=== PATIENT | male | born 1960 | race Caucasian/White ===

== ENCOUNTER 2017-11-09 17:41 | Emergency (ER) | payer OTHER ==
[~2017-11-09] VITALS: Ht 157.5 cm; Wt 92.6 kg
[2017-11-09 18:25] LABS: BASOPHILS # (AUTO) 0.04 x10^3/uL (0-0.1); BASOPHILS % (AUTO) 1 % (0-1); EOSINOPHILS # (AUTO) 0.06 x10^3/uL (0-0.4); EOSINOPHILS % (AUTO) 1 % (1-7); LYMPHOCYTES # (AUTO) 3.45 x10^3/uL (1-3.4); LYMPHOCYTES % (AUTO) 43 % (22-44); MD NO; MEAN CORPUSCULAR HEMOGLOBIN 33.6 pg (27.5-34.5); MEAN CORPUSCULAR HGB CONC 35.1 g/dL (33.2-36.2); MEAN CORPUSCULAR VOLUME 95.6 fL (81-97); MEAN PLATELET VOLUME 10.4 fL (7.4-10.4); MONOCYTES # (AUTO) 0.73 x10^3/uL (0.2-0.8); MONOCYTES % (AUTO) 9 % (2-9); NEUTROPHILS % (AUTO) 46 % (42-75); PLATELET COUNT 173 x10^3/uL (130-400); RED BLOOD COUNT 4.72 x10^6/uL (4.38-5.82); RED CELL DISTRIBUTION WIDTH 13.1 % (9.4-14.8)
[2017-11-09 18:33] LABS: ALANINE AMINOTRANSFERASE 77 U/L (12-78); ALBUMIN 3.8 g/dL (3.4-5.0); ANION GAP 9 mmol/L (5-15); CALCIUM 8.3 mg/dL (8.5-10.1); CHLORIDE 110 mmol/L (98-107); CREATININE 0.89 mg/dL (0.7-1.3)
[2017-11-09 18:37] LABS: ALKALINE PHOSPHATASE 106 U/L (45-117); BILIRUBIN,TOTAL 0.8 mg/dL (0.2-1.0); TOTAL PROTEIN 7.8 g/dL (6.4-8.2); TROPONIN I < 0.015 ng/mL (0.000-0.045)
[2017-11-09] MEDS ORDERED: LISINOPRIL 20 MG TABLET PO ONE (19:00)
[2017-11-09] MEDS ORDERED: LISINOPRIL 20 MG TABLET ONE (19:19)
[2017-11-09 19:23] VITALS: BP 209/120
== END 2017-11-09 20:05 | disposition home or self-care (01) ==
LOC: ED 19:59
DX: I10 Essential (primary) hypertension (principal)
CPT/HCPCS: 36415; 71045; 80053; 83880; 84484; 85025; 93005; 99285

== ENCOUNTER 2017-12-09 06:06 | Emergency (ER) | payer OTHER ==
[~2017-12-09] VITALS: Ht 177.8 cm; Wt 89.1 kg
[2017-12-09 06:39] LABS: BASOPHILS # (AUTO) 0.06 x10^3/uL (0-0.1); BASOPHILS % (AUTO) 1 % (0-1); EOSINOPHILS # (AUTO) 0.04 x10^3/uL (0-0.4); EOSINOPHILS % (AUTO) 1 % (1-7); LYMPHOCYTES # (AUTO) 2.95 x10^3/uL (1-3.4); LYMPHOCYTES % (AUTO) 42 % (22-44); MD NO; MEAN CORPUSCULAR HEMOGLOBIN 34.2 pg (27.5-34.5); MEAN CORPUSCULAR HGB CONC 34.9 g/dL (33.2-36.2); MEAN PLATELET VOLUME 9.9 fL (7.4-10.4); MONOCYTES # (AUTO) 0.71 x10^3/uL (0.2-0.8); MONOCYTES % (AUTO) 10 % (2-9); NEUTROPHILS # (AUTO) 3.36 x10^3/uL (1.8-6.8); NEUTROPHILS % (AUTO) 47 % (42-75); PLATELET COUNT 158 x10^3/uL (130-400); RED BLOOD COUNT 4.68 x10^6/uL (4.38-5.82); RED CELL DISTRIBUTION WIDTH 12.8 % (9.4-14.8)
[2017-12-09 06:51] LABS: ALBUMIN 3.7 g/dL (3.4-5.0); ANION GAP 7 mmol/L (5-15); CALCIUM 8.6 mg/dL (8.5-10.1); CHLORIDE 110 mmol/L (98-107)
[2017-12-09 06:55] LABS: ALANINE AMINOTRANSFERASE 95 U/L (12-78); ALKALINE PHOSPHATASE 100 U/L (45-117); BILIRUBIN,TOTAL 0.9 mg/dL (0.2-1.0); CREATININE 0.86 mg/dL (0.7-1.3); TOTAL PROTEIN 7.5 g/dL (6.4-8.2)
[2017-12-09 07:44] VITALS: BP 156/92
== END 2017-12-09 08:39 | disposition home or self-care (01) ==
LOC: ED 06:17
DX: I10 Essential (primary) hypertension (principal); G47.00 Insomnia, unspecified; Z87.891 Personal history of nicotine dependence
CPT/HCPCS: 36415; 80053; 85025; 93005; 99285

== ENCOUNTER 2020-11-04 05:34 | Observation (INO) | payer BC, OTHER ==
[~2020-11-04] VITALS: Ht 172.7 cm; Wt 92.9 kg
[2020-11-04] MEDS ORDERED: PROCHLORPERAZINE 5 MG/ML, 2ML ONE (05:48)
[2020-11-04] MEDS ORDERED: MECLIZINE CHEWABLE 25 MG TAB ONE (05:49)
[2020-11-04] MEDS ORDERED: PROCHLORPERAZINE 5 MG/ML, 2ML IVPush ONE (06:00)
[2020-11-04] MEDS ORDERED: MECLIZINE CHEWABLE 25 MG TAB PO ONE (06:00)
[2020-11-04 06:02] LABS: BASOPHILS % (AUTO) 1 % (0-1); EOSINOPHILS % (AUTO) 1 % (1-7); LYMPHOCYTES % (AUTO) 39 % (22-44); MEAN CORPUSCULAR HEMOGLOBIN 33.9 pg (27.5-34.5); MEAN PLATELET VOLUME 9.6 fL (7.4-10.4); MONOCYTES % (AUTO) 7 % (2-9); NEUTROPHILS % (AUTO) 52 % (42-75); PLATELET COUNT 148 x10^3/uL (130-400); RED BLOOD COUNT 4.58 x10^6/uL (4.38-5.82); RED CELL DISTRIBUTION WIDTH 13.1 % (9.4-14.8)
[2020-11-04 06:13] LABS: ALBUMIN 3.4 g/dL (3.4-5.0); ANION GAP 8 mmol/L (5-15); CALCIUM 8.7 mg/dL (8.5-10.1); CHLORIDE 107 mmol/L (98-107)
[2020-11-04 06:18] LABS: ALANINE AMINOTRANSFERASE 57 U/L (12-78); ALKALINE PHOSPHATASE 67 U/L (45-117); CREATININE 0.75 mg/dL (0.7-1.3); TOTAL PROTEIN 7.1 g/dL (6.4-8.2)
--- NOTE | 2020-11-04 06:33 | NUR ---
PT RESTING IN BED, VSS, STATES THAT HE STILL FEELS DIZZY AT THIS TIME
--- NOTE | 2020-11-04 08:00 | NUR ---
PT OFF THE FLOOR TO MRI
[2020-11-04] MEDS ORDERED: DEXAMETHASONE 4 MG/ML, 1ML IVPush ONE (08:30)
[2020-11-04] MEDS ORDERED: DEXAMETHASONE 4 MG/ML, 1ML ONE (08:51)
--- NOTE | 2020-11-04 10:11 | NUR ---
ATTEMPTED TO AMBULATE PT. PT STATES HE STILL FEELS DIZZY AND LIKE HE WILL FALL. PT PLACED BACK IN BED AND HOOKED UP TO VS MONITORING.
[2020-11-04] MEDS ORDERED: SODIUM CHLORIDE 0.9%, 500ML IVBOLUS ONE (10:30)
[2020-11-04] MEDS ORDERED: ATEN25TA PO (10:38)
[2020-11-04] MEDS ORDERED: LISI-170 PO (10:39)
--- NOTE | 2020-11-04 10:48 | NUR ---
REPORT TO REGINE ALVAREZ
[2020-11-04 11:07] VITALS: BP 160/94
[2020-11-04 11:41] VITALS: BP 160/94
[2020-11-04] MEDS ORDERED: IBUPROFEN 600 MG TABLET PO PRN (12:30)
[2020-11-04] MEDS ORDERED: ACETAMINOPHEN 325 MG TABLET PO PRN (12:30)
[2020-11-04] MEDS ORDERED: ONDANSETRON ODT 4 MG PO PRN (12:30)
[2020-11-04] MEDS ORDERED: LACTATED RINGERS 1,000 ML IV SCH (12:30)
[2020-11-04] MEDS: ENOXAPARIN 40 MG/0.4 ML SQ SCH (12:30)
[2020-11-04] MEDS ORDERED: SENNA/DOCUSATE TABLET PO PRN (12:30)
[2020-11-04] MEDS ORDERED: PROMETHAZINE 25 MG/ML, 1ML IM PRN (12:30)
[2020-11-04] MEDS ORDERED: ONDANSETRON 2MG/ML, 2ML IVPush PRN (12:30)
[2020-11-04] MEDS ORDERED: POLYETHYLENE GLYCOL 17 GM PACKET PO PRN (12:30)
[2020-11-04 13:15] VITALS: BP 127/78
[2020-11-04] MEDS: POTASSIUM CHLORIDE 20 MEQ TAB.ER.PRT PO SCH ×2 (13:20→20:22)
[2020-11-04 18:42] VITALS: BP 144/77
[2020-11-04 20:24] VITALS: BP 136/71
[2020-11-04] MEDS ORDERED: ATENOLOL 25 MG TABLET PO SCH (21:00)
[2020-11-05 00:32] VITALS: BP 143/77
[2020-11-05 06:39] LABS: BASOPHILS % (AUTO) 0 % (0-1); EOSINOPHILS % (AUTO) 0 % (1-7); LYMPHOCYTES % (AUTO) 18 % (22-44); MEAN CORPUSCULAR HEMOGLOBIN 34.1 pg (27.5-34.5); MEAN CORPUSCULAR HGB CONC 34.3 g/dL (33.2-36.2); MEAN PLATELET VOLUME 10.4 fL (7.4-10.4); MONOCYTES % (AUTO) 7 % (2-9); NEUTROPHILS % (AUTO) 75 % (42-75); PLATELET COUNT 175 x10^3/uL (130-400)
[2020-11-05 06:50] LABS: ANION GAP 5 mmol/L (5-15); CALCIUM 8.7 mg/dL (8.5-10.1); CHLORIDE 109 mmol/L (98-107); CREATININE 0.79 mg/dL (0.7-1.3)
[2020-11-05 07:14] VITALS: BP 128/82
[2020-11-05] MEDS: ENOXAPARIN 40 MG/0.4 ML SQ SCH (08:50)
[2020-11-05] MEDS ORDERED: LISINOPRIL 20 MG TABLET PO SCH (09:00)
[2020-11-05 13:28] VITALS: BP 134/89
== END 2020-11-05 18:04 | disposition home or self-care (01) ==
LOC: ED 11:34 → ORIP 11:37 → INTOOBSV 11:37 → 3N 12:12
PROVIDERS: ADMIT Hospitalist; ATTEND Family Medicine
DX: R42 Dizziness and giddiness (principal); E87.6 Hypokalemia; I10 Essential (primary) hypertension; F10.10 Alcohol abuse, uncomplicated; E66.9 Obesity, unspecified; D72.829 Elevated white blood cell count, unspecified; F17.200 Nicotine dependence, unspecified, uncomplicated; Z68.31 Body mass index [BMI] 31.0-31.9, adult; Z79.899 Other long term (current) drug therapy; W01.0XXA Fall on same level from slipping, tripping and stumbling without subsequent striking against object, initial encounter; Y93.89 Activity, other specified; Y92.89 Other specified places as the place of occurrence of the external cause
CPT/HCPCS: 36415; 70551; 80048; 80053; 83735; 85025; 93005; 96361; 96374; 96375; 97162; 99285; G0378; J0780; J1100; J7040; J7120